=== PATIENT | male | born 1975 | race Asian ===

== ENCOUNTER 2020-12-06 15:18 | Emergency (ER) | payer BC ==
[~2020-12-06] VITALS: Ht 172.7 cm; Wt 68.0 kg
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
--- NOTE | 2020-12-06 15:52 | NUR ---
JOSEP PA AT BEDSIDE FOR EVAL.
--- NOTE | 2020-12-06 16:03 | NUR ---
RADIOLOGY AT BEDSIDE FOR RIB XRAY.
[2020-12-06] MEDS ORDERED: AMLO10TA4 PO (16:52)
[2020-12-06] MEDS ORDERED: LOSA1TAB3 PO (16:52)
[2020-12-06] MEDS ORDERED: CYCL5TAB PO (16:52)
[2020-12-06] MEDS ORDERED: KETOROLAC TROMETHAMINE INJ 30 MG/ML VIAL ONE (16:55)
[2020-12-06] MEDS: KETOROLAC TROMETHAMINE INJ 60 MG/2 ML VIAL IM ONE (17:00)
--- NOTE | 2020-12-06 17:20 | NUR ---
Patient discharged to home in stable condition. Written and verbal after care instructions given. Patient verbalizes understanding of instruction.
[2020-12-06 17:21] VITALS: BP 161/116
== END 2020-12-06 17:23 | disposition home or self-care (01) ==
LOC: ER 15:22
DX: S16.1XXA Strain of muscle, fascia and tendon at neck level, initial encounter (principal); S29.012A Strain of muscle and tendon of back wall of thorax, initial encounter; S20.212A Contusion of left front wall of thorax, initial encounter; Z76.0 Encounter for issue of repeat prescription; I10 Essential (primary) hypertension; M10.9 Gout, unspecified; E78.5 Hyperlipidemia, unspecified; Z79.899 Other long term (current) drug therapy; V49.59XA Passenger injured in collision with other motor vehicles in traffic accident, initial encounter; Y93.89 Activity, other specified; Y92.413 State road as the place of occurrence of the external cause; Y99.8 Other external cause status
CPT/HCPCS: 71100; 96372; 99283; J1885